=== PATIENT | female | born 1975 | race Two or more races ===

== ENCOUNTER 2019-08-07 07:29 | Outpatient (CLI) | payer OTHER | END 2019-08-07 07:31 | disposition home or self-care (01) | LOC: SONOGRAMA 07:29 | DX: E04.1 Nontoxic single thyroid nodule (principal) ==

== ENCOUNTER 2022-01-15 11:01 | Outpatient (CLI) | payer OTHER | END 2022-01-15 11:06 | disposition home or self-care (01) | LOC: SONOGRAMA 11:01 | PROVIDERS: ATTEND Pathology Anatomic Pathology & Clinical Pathology | DX: R22.1 Localized swelling, mass and lump, neck (principal) ==